=== PATIENT | female | born 1960 | race Caucasian/White ===

== ENCOUNTER → 2021-04-02 | Outpatient (CLI) | payer OTHER ==
[2021-04-02 17:14] LABS: ALBUMIN 3.8 g/dL (3.4-5.0); ANION GAP 6 mmol/L (5-15); CALCIUM 8.6 mg/dL (8.5-10.1); CHLORIDE 110 mmol/L (98-107); CREATININE 0.84 mg/dL (0.55-1.02)
== END | disposition home or self-care (01) ==
LOC: RAD 16:33
PROVIDERS: ATTEND Internal Medicine
DX: D37.4 Neoplasm of uncertain behavior of colon (principal); K56.690 Other partial intestinal obstruction
CPT/HCPCS: 36415; 80069; 82378